=== PATIENT | female | born 1980 | race Caucasian/White ===

== ENCOUNTER 2017-04-06 07:06 | Inpatient (IN) ==
[2017-04-06] MEDS ORDERED: ceFAZolin 2,000 MG in PREMIX 1 EACH IV ONE (07:37)
[2017-04-06] MEDS ORDERED: FAMOTIDINE 20 MG/2 ML VIAL IV ONE (07:37)
[2017-04-06] MEDS ORDERED: CITRIC ACID/SODIUM CITRATE 30 ML UDCUP PO ONE (07:37)
[2017-04-06] MEDS ORDERED: LACTATED RINGERS 1,000 ML IV SCH (08:00)
[2017-04-06] MEDS ORDERED: OXYTOCIN 10 UNIT/ML VIAL ONE (08:01)
[2017-04-06] MEDS ORDERED: OXYTOCIN/LR 30 UNIT/1,000 ML BAG IV ONE (08:04)
[2017-04-06] MEDS ORDERED: OXYTOCIN 10 UNIT/ML VIAL IM ONE (08:04)
[2017-04-06 08:11] LABS: Basophils % 0.2 % (0.0-0.8); Eosinophils # 0.2 10*3/uL (0.0-0.87); Eosinophils % 1.7 % (0.00-10.9); Hemoglobin 11.8 GM/DL (12.0-16.0); Immature Granulocytes % 0.7 %; Immature Granulocytes Absolute 0.08 #; Lymphocytes # 1.9 10*3/uL (1.4-4.0); Lymphocytes % 17.3 % (21.3-54.2); Mean Corpuscular HGB Conc 33.7 GM/DL (32-36); Mean Corpuscular Hemoglobin 28 PG (27-34); Mean Corpuscular Volume 84.1 FL (87-102); Mean Platelet Volume 11.6 FL (9.6-12.0); Monocytes # 0.6 10*3/uL (0.11-0.8); Monocytes % 5.5 % (1.7-12.7); Neutrophils % 74.6 % (38.7-73.9); Platelet Count 184 T/CUMM (130-400); Red Blood Count 4.16 MC/CUMM (3.8-5.5); Red Cell Distribution Width 12.8 % (9.3-17.3); White Blood Count 10.8 T/CUMM (4-12)
[2017-04-06 08:20] LABS: INR 0.9; PT Patient Result 9.4 SECS; Partial Thromboplastin Time 26.6 SECS (0-40)
[2017-04-06] MEDS ORDERED: ONDANSETRON 4 MG/2 ML VIAL ONE (08:35)
[2017-04-06] MEDS ORDERED: PHENYLEPHRINE 1 MG/10 ML SYRINGE IV ONE (08:35)
[2017-04-06 08:40] LABS: Alanine Aminotransferase 21 U/L (13-56); Albumin 2.3 G/DL (3.4-5.0); Alkaline Phosphatase 226 U/L (45-117); Aspartate Amino Transferase 23 U/L (0-37); Bilirubin,Total < 0.39 MG/DL (0.2-1.0); Blood Urea Nitrogen 8 MG/DL (7-18); Calcium 8.6 MG/DL (8.5-10.1); Glucose 72 MG/DL (74-106); Osmolality,Calculated 273.5 MOS/KG (273-304); Potassium 3.8 MMOL/L (3.5-5.1); Sodium 139 MMOL/L (136-145); Total Protein 6.4 G/DL (6.4-8.3)
[2017-04-06] MEDS ORDERED: fentaNYL 100 MCG/2 ML VIAL ONE (09:17)
[2017-04-06] MEDS ORDERED: MORPHINE 10 MG/10 ML VIAL ONE (09:18)
[2017-04-06] MEDS ORDERED: OXYTOCIN/LR 20 UNIT/1,000 ML BAG IV ONE ×2 (09:56→10:49)
[2017-04-06 10:03] LABS: Cord Arterial Blood HCO3 21.9 MMOL/L
[2017-04-06 10:08] LABS: Cord Venous Blood HCO3 23.2 MMOL/L; Cord Venous Blood PCO2 44.7 MMHG; Cord Venous Blood PO2 38.6
[2017-04-06 10:17] LABS: Apearance,Urine CLEAR (Clear); Bacteria,Urine Occasional /HPF (Few); Bilirubin,Urine Negative (Negative); Blood, Urine Negative (Negative); Glucose,Urine (UA) Negative (Negative); Ketones,Urine Negative (Negative); Nitrite,Urine Negative (Negative); Protein,Urine 30 MG/DL; RBC,Urine 2 /HPF (0-4); Squamous Epithelial Cell,Urine Occasional /HPF (0-10); Urine Color Straw (Yellow); Urine Specific Gravity 1.003 (1.001-1.035); Urine Urobilinogen < 2.0 EU/DL (0.2-1.0); WBC,Urine <1 /HPF (0-6)
--- NOTE | 2017-04-06 10:24 | Anesthesia Post-Op ---
Anesthesia Post OP - Post Ansesthetic Evaluation Patient seen in post op: Yes Resp: within normal limits CV: within normal limits Mental: within normal limits Temp: within normal limits Xpeh-Ne-Eslyoznke: within normal limits Nausea and Vomiting: within normal limits Pain: within normal limits
--- NOTE | 2017-04-06 10:47 | Operative Note ---
Date of procedure: 04/06/17 Procedure: Preoperative diagnosis: Repeat section, term Postoperative diagnosis: Same Anesthesia:[] Regional Estimated blood loss: [] 300 Surgeon: Dr. Garcia Findings: [] Female 7 lbs. 12 oz., Apgars were 8 at 1 minute, 9 at 5 minutes, delivery time was 9:10 AM Complications: None Procedure: Low transverse section The patient was taken to the operating suite heart tones were obtained prior to and after regional anesthesia was obtained. She was placed in supine position her abdomen was prepped and draped in usual manner for major abdominal surgery. Through an abdominal incision the skin, subcutaneous, fascial layer and peritoneal the abdomen was entered. The bladder flap was created and a low transverse incision was made.. Fluid was clear and normal amount X, Apgars, the placenta was delivered and sent to lab for further evaluation. Injected with intrauterine Pitocin. The first layer of the uterus was closed with #1 Vicryl in a continuous locking manner. Close to imbricate the first layer with #1 Vicryl. The peritoneum was approximated with #2-0 Vicryl.[] All the last sponges and instruments were accounted for -2.) #2-0 Vicryl. Fascia was approximated with #0-0 Maxon.. The skin was approximated with tato. She tolerated procedure well and was taken to recovery room in stable condition. Surgeon / Physician: Oscar Garcia Results - Labs CBC & BMP: 04/06/17 07:44 04/06/17 07:44 Discharge Plan - Discharge Medications No Action Multivitamin () [ Vitamin] 1 tablet PO DAILY Pnv No.95/Ferrous Fum/Folic AC [ Tablet] 1 tablespoon PO DAILY - Follow Up or Referral - Forms/Instructions
[2017-04-06] MEDS ORDERED: ONDANSETRON 4 MG/2 ML VIAL IV PRN (10:49)
[2017-04-06] MEDS ORDERED: ACETAMINOPHEN 325 MG TABLET PO PRN (10:49)
[2017-04-06] MEDS ORDERED: IBUPROFEN 800 MG TABLET PO PRN (10:49)
[2017-04-06] MEDS ORDERED: RHO(D) IMMUNE GLOBULIN 300 MCG SYRINGE IM ONE (11:00)
[2017-04-06] MEDS ORDERED: diphenhydrAMINE 50 MG/1 ML VIAL ONE (11:43)
[2017-04-06] MEDS ORDERED: diphenhydrAMINE 50 MG/1 ML VIAL IV PRN (12:00)
[2017-04-06] MEDS ORDERED: hydrOXYzine HCL 25 MG/1 ML VIAL IM PRN (13:42)
[2017-04-06] MEDS: hydrOXYzine HCL 50 MG/1 ML VIAL IM PRN ×2 (14:37→20:36)
[2017-04-06] MEDS: LACTATED RINGERS 1,000 ML IV SCH ×2 (14:37→23:13)
[2017-04-06 17:59] LABS: Basophils % 0.2 % (0.0-0.8); Eosinophils # 0.1 10*3/uL (0.0-0.87); Eosinophils % 0.6 % (0.00-10.9); Hematocrit 31.2 VOL% (35.7-47.0); Hemoglobin 10.5 GM/DL (12.0-16.0); Immature Granulocytes % 0.5 %; Immature Granulocytes Absolute 0.07 #; Lymphocytes # 1.8 10*3/uL (1.4-4.0); Lymphocytes % 12.5 % (21.3-54.2); Mean Corpuscular HGB Conc 33.7 GM/DL (32-36); Mean Corpuscular Hemoglobin 28 PG (27-34); Mean Corpuscular Volume 82.8 FL (87-102); Mean Platelet Volume 11.5 FL (9.6-12.0); Monocytes # 0.7 10*3/uL (0.11-0.8); Monocytes % 5.1 % (1.7-12.7); Neutrophils # 11.7 10*3/uL (1.4-7.4); Neutrophils % 81.1 % (38.7-73.9); Platelet Count 161 T/CUMM (130-400); Red Blood Count 3.77 MC/CUMM (3.8-5.5); Red Cell Distribution Width 12.7 % (9.3-17.3); White Blood Count 14.5 T/CUMM (4-12)
[2017-04-06] MEDS: DOCUSATE SODIUM 100 MG CAPSULE PO SCH (20:29)
[2017-04-07 06:24] LABS: Basophils % 0.2 % (0.0-0.8); Eosinophils # 0.1 10*3/uL (0.0-0.87); Eosinophils % 0.6 % (0.00-10.9); Hematocrit 33.9 VOL% (35.7-47.0); Hemoglobin 11.5 GM/DL (12.0-16.0); Immature Granulocytes % 0.5 %; Immature Granulocytes Absolute 0.07 #; Lymphocytes # 1.6 10*3/uL (1.4-4.0); Lymphocytes % 11.9 % (21.3-54.2); Mean Corpuscular HGB Conc 33.9 GM/DL (32-36); Mean Corpuscular Hemoglobin 28 PG (27-34); Mean Corpuscular Volume 83.1 FL (87-102); Mean Platelet Volume 11.4 FL (9.6-12.0); Monocytes # 0.6 10*3/uL (0.11-0.8); Monocytes % 4.5 % (1.7-12.7); Neutrophils # 10.9 10*3/uL (1.4-7.4); Neutrophils % 82.3 % (38.7-73.9); Platelet Count 193 T/CUMM (130-400); Red Blood Count 4.08 MC/CUMM (3.8-5.5); Red Cell Distribution Width 12.9 % (9.3-17.3); White Blood Count 13.2 T/CUMM (4-12)
[2017-04-07] MEDS: MULTIVITAMIN (PRENATAL) TABLET PO SCH (09:03)
[2017-04-07] MEDS: MAGNESIUM HYDROXIDE SUSP 30 ML UDCUP PO PRN (09:03)
[2017-04-07] MEDS: DOCUSATE SODIUM 100 MG CAPSULE PO SCH ×2 (09:04→21:27)
[2017-04-07] MEDS: SIMETHICONE CHEW 80 MG TABLET PO PRN (09:04)
[2017-04-07] MEDS ORDERED: hydrALAZINE 20 MG/1 ML VIAL IV ONE (09:06)
--- NOTE | 2017-04-07 10:04 | OB/GYN Progress Note ---
Assessment and Plan (1) Previous section Status: Acute Current Visit: Yes (2) Status post repeat low transverse section Status: Acute Assessment and plan: Initiate routine post op orders. Current Visit: Yes SNOUT PULLER - PN: Subj Interval history: Stable with no complaints. Bonding well with . Exam SNOUT PULLER - Constitutional Vitals: Vital Signs Temp Pulse Resp BP Pulse Ox 04/07/17 07:51 97.6 F 84 18 162/102 97 04/07/17 04:00 97.5 F L 95 H 20 143/91 96 04/07/17 01:00 18 04/07/17 00:00 99.4 F 90 18 151/89 96 04/06/17 20:00 99.0 F 89 18 149/84 98 04/06/17 16:00 99.6 F 83 20 150/93 98 04/06/17 14:30 77 20 161/87 98 04/06/17 13:30 98.9 F 78 20 156/88 98 General appearance: no acute distress - Antepartum / Post Post Exam Breast: bilateral: normal Vagina: Present: discharge (Light lochia rubra) Uterus exam: Present: enlarged (Fundus firm midline) Anus/Rectum: Present: normal perianal skin - Gyencological / Post Surgical Post Surgical Exam Lungs: bilateral: normal Chest: Normal S1, Normal S2 Extremities SNOUT PULLER: Present: normal Abdomen obstetrics progress note: Present: normal appearance Incision OB: Present: normal, dry, intact - Respiratory Respiratory exam: Present: clear to auscultation bilaterally - Cardiovascular Cardiovascular exam: Present: regular rate and rhythm - GI/Abdominal GI/Abdominal exam: Present: normal bowel sounds, soft - Extremities Exam Extremities exam: Present: normal inspection - Neurological Exam Neurological exam: Present: alert, oriented X3 - Psychiatric Psychiatric exam: Present: normal affect, normal mood - Skin Skin exam: Present: normal color, warm Results - Labs CBC & BMP: 04/07/17 05:57 04/06/17 07:44
[2017-04-08] MEDS: DOCUSATE SODIUM 100 MG CAPSULE PO SCH (09:21)
[2017-04-08] MEDS: MULTIVITAMIN (PRENATAL) TABLET PO SCH (09:21)
[2017-04-08] MEDS: MAGNESIUM HYDROXIDE SUSP 30 ML UDCUP PO PRN (09:21)
[2017-04-08] MEDS: SIMETHICONE CHEW 80 MG TABLET PO PRN (09:21)
[2017-04-08 12:40] VITALS: BP 152/99
--- NOTE | 2017-04-08 14:03 | Discharge Summary ---
Hospital Course - Hospital Course Hospital Course: Postoperative day #2 Status post section secondary to preeclampsia Lungs are clear, cardiac exam benign, breast without masses ,abdomen soft, nontender ,external genitalia within limits, vagina is moist Incision sites are intact, extremities are well within normal limits. Assessment and plan Status post section -induced hypertension We will discharge on Procardia 60 mg daily, and Percocet. Specialty Discharge - Follow Up or Referrals Follow up with: Oscar Garcia MD [Physician] - 04/14/17 9:30 am (Follow up 1 week for blood pressure check) Discharge Plan - Discharge Data Condition at Discharge: Stable Discharge Diet: advance to your usual diet Activity: resume usual activities as tolerated Hygiene: no restrictions Weight Bearing at Discharge: full weight bearing Driving: no restrictions Contact your physician if you experience:: fever over 101 - Discharge Medications New HYDROcodone/ACETAMIN 5-325 [[place] 5-325] 1 tablet PO Q6H PRN #30 tablet PRN Reason: Pain Moderate (4-7) Ibuprofen Tab [Motrin Tab] 800 mg PO Q8H PRN #30 tablet PRN Reason: Pain Severe (8-10) No Action Multivitamin () [ Vitamin] 1 tablet PO DAILY Pnv No.95/Ferrous Fum/Folic AC [ Tablet] 1 tablespoon PO DAILY - Follow Up or Referral Follow Up: Ocsar Garcia MD [Physician] - 04/14/17 9:30 am (Follow up 1 week for blood pressure check) - Forms/Instructions Instructions: Ibuprofen (By mouth), Oxycodone/Acetaminophen (By mouth), Section (DC), Depression (GEN), Pre-eclampsia and Eclampsia (DC), Surgical Site Infections (GEN), Bleeding (DC) Exam - Constitutional Vitals: Period Temp Pulse Resp BP Sys/Fuentes Pulse Ox Last 24 Hr 97.4 F-99.2 F 67-108 18-20 124-152/66-99 97-98 Discharge Results Procedures and tests throughout hospitalization: Pending Orders 04/06/17 07:44 Antibody Identification Stat Red Blood Cells Leuko Red Stat Type and Screen Stat Labs on day of discharge: Labs from last 24 hours 04/06/17 07:44 Crossmatch See Detail DS: Provider Date of admission: 04/06/17 07:37 Primary care physician: Mook Campbell DO Attending physician on admission: Oscar Garcia MD Consults: 04/06/17 07:38 Consult to Anesthesiology [CONS] Routine Consulting Provider: Reason for Anesthesiology: Pre-op Clearance 04/06/17 10:49 Consult to Java Software [CONS] Routine Consult Java Software: Breast Feeding Discharging clinician: Oscar Garcia MD
== END 2017-04-08 16:05 | disposition home or self-care (01) | DRG 766 ==
LOC: N.LDOUT 07:06 → N.LD 07:07 → N.OB 13:18
PROVIDERS: ADMIT Obstetrics & Gynecology; ATTEND Obstetrics & Gynecology
PROC: LDCSECT (ICD-10-PCS; 2017-04-06 08:00)